=== PATIENT | male | born 1955 | race Caucasian/White ===

== ENCOUNTER 2017-05-18 12:12 | Emergency (ER) | payer SELFPAY ==
[~2017-05-18] VITALS: Ht 172.7 cm; Wt 122.5 kg
[2017-05-18 12:14] VITALS: BP 154/99; PULSE 96; RESP 20; TEMP 98.8; O2SAT 94
--- NOTE | 2017-05-18 12:21 | PD ---
Physical Exam Date Seen by Provider: May 18, 2017 Time Seen by Provider: 12:19 Narrative 61 yowm l hand dominant c/o r biceps tear lifting weights [employer]. VS REVIEWED AWAITING BED PLACEMENT Data Data Last Documented VS Vital Signs Date Time Temp Pulse Resp B/P Pulse Ox O2 Delivery O2 Flow Rate FiO2 05/18/17 12:14 98.8 96 20 154/99 94 Room Air MDM Supervised Visit with RUSH: Alex Monroe May 18, 2017 12:21
--- NOTE | 2017-05-18 12:35 | PD ---
HPI Chief Complaint: Musculoskeletal Complaint Time Seen by Provider: 12:35 Travel History International Travel<30 days: No Contact w/Intl Traveler<30days: No Traveled to known affect area: No History of Present Illness HPI 61-year-old male presents to the emergency department with injury to the right bicep. Patient states he was lifting weights approximate hour half ago when he felt a tear with sudden onset pain to the distal bicep region. Patient currently has normal sensation, and is able to flex the forearm and elbow as well as extend it with moderate discomfort but no weakness. Patient has history of bicep tear to the left several years ago. Patient has no other injury. Patient has no known drug allergies. PFSH Past Medical History Cardiovascular Problems: Yes Social History Alcohol Use: Yes Tobacco Use: No Substance Use: No Allergies-Medications (Allergen,Severity, Reaction): Coded Allergies: No Known Allergies (Unverified , 05/18/17) Review of Systems Except as stated in HPI: all other systems reviewed are Neg General / Constitutional: No: Fever Eyes: No: Visual changes HENT: No: Headaches Cardiovascular: No: Chest Pain or Discomfort Respiratory: No: Shortness of Breath Gastrointestinal: No: Abdominal Pain Genitourinary: No: Dysuria Musculoskeletal: Positive: Myalgias, Pain Skin: No Rash Neurologic: No: Weakness Psychiatric: No: Depression Endocrine: No: Polydipsia Hematologic/Lymphatic: No: Easy Bruising Physical Exam Narrative GENERAL: Moderately obese patient in no acute distress. SKIN: Warm and dry. Normal color. Normal turgor. No ecchymosis. HEAD: Atraumatic. Normocephalic. EYES: Pupils equal and round. No scleral icterus. No injection or drainage. ENT: No nasal bleeding or discharge. Mucous membranes pink and moist. Pharynx is clear. Airway is patent. NECK: Trachea midline. Supple and nontender. CARDIOVASCULAR: Regular rate and rhythm. RESPIRATORY: No accessory muscle use. Clear to auscultation. Breath sounds equal bilaterally. GASTROINTESTINAL: Abdomen soft, non-tender, nondistended. Hepatic and splenic margins not palpable. MUSCULOSKELETAL: Extremities without clubbing, cyanosis, or edema. Patient is obvious deformity to the right bicep consistent with bicep tendon tear. Moderate pain is noted. Range of motion however is full. NEUROLOGICAL: Awake and alert. No obvious cranial nerve deficits. Motor grossly within normal limits. Five out of 5 muscle strength in the arms and legs. Normal speech. PSYCHIATRIC: Appropriate mood and affect; insight and judgment normal. Data Data Last Documented VS Vital Signs Date Time Temp Pulse Resp B/P Pulse Ox O2 Delivery O2 Flow Rate FiO2 05/18/17 12:14 98.8 96 20 154/99 94 Room Air MDM Medical Decision Making Medical Screen Exam Complete: Yes Emergency Medical Condition: Yes Differential Diagnosis Right biceps sprain. Right biceps strain. Right bicep tendon rupture. Narrative Course Radiographic imaging is not felt warranted at this time. Alcides bandages placed on the right arm for comfort purposes. Patient will be treated with ibuprofen 600 mg 4 times a day #40. Patient also given Flexeril 10 mg up to 3 times daily for muscle spasm if necessary. #15. Patient should ice the area and avoid any heavy lifting until cleared by orthopedist. Patient is to call Dr. Stephenson, the orthopedist on-call for further evaluation and treatment. Patient can return to emergency department as needed. Diagnosis Primary Impression: Rupture of right biceps tendon Qualified Code: S46.211A - Rupture of right biceps tendon, initial encounter Referrals: Anastacio Stephenson MD call for appointment Patient Instructions: General Instructions, Repairs of the Biceps and Triceps Tendons (DC) Additional Instructions: Radiographic imaging is not felt warranted at this time. Alcides bandages placed on the right arm for comfort purposes. Patient will be treated with ibuprofen 600 mg 4 times a day #40. Patient also given Flexeril 10 mg up to 3 times daily for muscle spasm if necessary. #15. Patient should ice the area and avoid any heavy lifting until cleared by orthopedist. Patient is to call Dr. Stephenson, the orthopedist on-call for further evaluation and treatment. Patient can return to emergency department as needed. Med/Other Pt SpecificInfo: Prescription(s) given Disposition: DISCHARGE HOME Condition: Stable Edin Noble May 18, 2017 12:35
[2017-05-18] MEDS ORDERED: IBUP-232 PO (12:44)
[2017-05-18] MEDS ORDERED: CYCL1TAB29 PO (12:44)
== END 2017-05-18 13:11 | disposition home or self-care (01) ==
LOC: NEPK 12:12
DX: S46.211A Strain of muscle, fascia and tendon of other parts of biceps, right arm, initial encounter (principal); X50.0XXA Overexertion from strenuous movement or load, initial encounter; Y93.B9 Activity, other involving muscle strengthening exercises
CPT/HCPCS: 99283